=== PATIENT | male | born 1980 | race African-American/Black ===

== ENCOUNTER 2018-03-15 19:08 | Emergency (ER) | payer MEDICAID ==
[~2018-03-15] VITALS: Ht 185.4 cm; Wt 156.8 kg
[2018-03-15] MEDS ORDERED: IBUPROFEN 800MG TABLET PO ONE (21:15)
[2018-03-15 21:23] VITALS: BP 150/89
== END 2018-03-15 22:33 | disposition home or self-care (01) ==
LOC: ER 19:08
DX: M25.562 Pain in left knee (principal); M54.5 Low back pain
CPT/HCPCS: 73562; 99284